=== PATIENT | female | born 1955 | race Caucasian/White ===

== ENCOUNTER 2020-03-05 15:14 | Emergency (ER) | payer BC, SELFPAY ==
--- NOTE | ~2020-03-05 | XR_ITS ---
EXAMINATION: XR chest 2V DATE: 03/05/2020 15:57 INDICATION: Chest tightness. Cough. TECHNIQUE: Frontal and lateral views of the chest were obtained. COMPARISON: None. FINDINGS: The chest demonstrates clear lungs without pneumonia, pleural effusion, or pneumothorax. Th e heart size is normal. There is mild pectus excavatum. IMPRESSION: 1. No acute cardiopulmonary disease. Reviewed, dictated and finalized at location B. [facility]
[2020-03-05 15:32] VITALS: BP 132/82; PULSE 81; RESP 20; TEMP 36.7; O2SAT 97
--- NOTE | 2020-03-05 15:48 | ED.URI ---
HPI - URI/Sore Throat General Chief Complaint: Upper Respiratory Infection Stated Complaint: RUNNY NOSE/HEADACHE Time Seen by Provider: 03/05/20 15:48 Source: patient Mode of arrival: ambulatory Limitations: no limitations History of Present Illness HPI Narrative: Nica Mahmood is a 65 yo female with a PMH of hypothyroid, seasonal allergies, high cholesterol, HSV, who was in contact with granddaughter and daughter who are both COVID positive this week. She has had 7 days of nasal congestion, increasing cough, fatigue. Raspy voice. Worsening symptoms last 2 days. Related Data Home Medications Medication Instructions Recorded Confirmed albuterol sulfate [Ventolin HFA] 2 puff INHALATION Q6-12H PRN 03/05/20 03/05/20 cholecalciferol (vitamin D3) 125 mcg PO DAILY 03/05/20 03/05/20 [Vitamin D3] clorazepate dipotassium 7.5 mg PO BID 03/05/20 03/05/20 estradiol 1 patch TRANSDERMAL WEEKLY 03/05/20 03/05/20 fluticasone propionate [Flonase] 1 spray INTRANASAL DAILY 03/05/20 03/05/20 levothyroxine 75 mcg PO DAILY 03/05/20 03/05/20 pravastatin 10 mg PO DAILY 03/05/20 03/05/20 valacyclovir 500 mg PO BID PRN 03/05/20 03/05/20 Allergies Allergy/AdvReac Type Severity Reaction Status Date / Time No Known Allergies Allergy Verified 03/05/20 15:21 Review of Systems Review of Systems: Narrative: CONSTITUTIONAL: Denies fever, chills, sweats.is fatigued EYES: Denies visual changes, redness, discharge. ENT:has rhinorrhea, has congestion, no sore throat, otalgia. CARDIOVASCULAR: Denies chest pain, states , no palpitations, edema. RESPIRATORY: Denies dyspnea, wheezing, has chest tightness, some cough GASTROINTESTINAL: Denies abdominal pain, nausea, vomiting, diarrhea. GENITOURINARY: Denies dysuria, hematuria, abnormal discharge SKIN: Denies rash or itching. NEUROLOGIC: Denies numbness, or focal weakness. PSYCHIATRIC: Denies anxiety or depression. FOR[facility]LY [facility], [facility] Past Medical History Medical History (Updated 03/05/20 @ 16:09 by Elif Arita CNP) High cholesterol Hypothyroid Seasonal allergies Upper respiratory infection Family History Family History Other No acute medical problems Social History Social History Smoking status: Former smoker Alcohol intake: current Comments At time of signature, I agree with nursing past medical, surgical, social and family history. There is no relevant family history pertinent to the presenting complaint. Exam Narrative: Exam Narrative: GENERAL: This is a well-nourished, well-developed patient, in mild distress. HEAD: normocephalic, atraumatic. EYES: Sclera clear/white. Vision is grossly intact. EARS: External ears normal. Hearing grossly intact. NOSE: External nose normal with nasal discharge, nares without redness, no rhinorrhea. THROAT: Mucous membranes moist, posterior pharynx erythema, mild cough NECK: Neck supple, non-tender CARDIOVASCULAR: Regular rate and rhythm without murmurs, gallops, or rubs. RESPIRATORY: Diminished to auscultation. Breath sounds equal bilaterally. No wheezes, rales, or rhonchi. GASTROINTESTINAL: Abdomen soft, SKIN: warm, intact with no suspicious lesions or rash, good texture and turgor. NEURO: awake, alert, and oriented to person, place and time. There were no obvious focal neurologic abnormalities. Steady gait EXTREMITIES: Normal range of motion. BACK: Nontender without deformity Course Course Emergency Course: came to express care with cough, fatigue, congestion for past 2-3 days- contact with grand daughter and daughter who are covid positive within a week of contact. Patient started having nasal congestion last week about 3 days after initial contact-states symptoms are gradually worsening chest xray- no acute cardiopulmonary disease rapid test done - negative; PCR for covid done and sent Started on dexamethasone. antihistamine, cough
[2020-03-06 22:25] LABS: SARS-CoV-2 RNA PCR Negative
== END 2020-03-05 16:35 | disposition home or self-care (01) ==
PROVIDERS: Emergency Provider Nurse Practitioner; PCP Nurse Practitioner Family
DX: J06.9 Acute upper respiratory infection, unspecified (principal); Z20.822 Contact with and (suspected) exposure to COVID-19; E78.00 Pure hypercholesterolemia, unspecified; E03.9 Hypothyroidism, unspecified; Z87.891 Personal history of nicotine dependence
CPT/HCPCS: 71046; 87426; 99213; C9803; G0463; U0003; U0005